=== PATIENT | male | born 1960 | race Two or more races ===

== ENCOUNTER 2019-12-16 09:30 | Outpatient (CLI) | payer OTHER | END 2019-12-16 09:43 | disposition home or self-care (01) | LOC: LAB 09:30 | DX: N20.0 Calculus of kidney (principal) ==

== ENCOUNTER 2019-12-21 15:14 | Outpatient (CLI) | payer OTHER ==
[2019-12-26] MEDS ORDERED: HYDROCHLOROTHIA25 MG PO (12:08)
[2019-12-26] MEDS ORDERED: ASPIR 8181 MG PO (12:08)
[2019-12-26] MEDS ORDERED: SYNTHROID175 MCG PO (12:08)
[2019-12-26] MEDS ORDERED: ENALAPRIL MALEA10 MG PO (12:08)
== END 2019-12-21 18:00 | disposition home or self-care (01) ==
LOC: EKG 15:14
DX: I10 Essential (primary) hypertension (principal)

== ENCOUNTER 2020-01-17 09:52 | Inpatient (IN) | payer OTHER ==
[~2020-01-17] VITALS: Ht 167.6 cm; Wt 79.8 kg
[~2020-01-17 09:52] MED LIST: ASPIR 8181 MG PO; ENALAPRIL MALEA10 MG PO; HYDROCHLOROTHIA25 MG PO; SYNTHROID175 MCG PO
== END 2020-01-19 09:20 | disposition home or self-care (01) | DRG 661 ==
LOC: CIR.AMB 09:52 → SURH 19:10
PROVIDERS: ADMIT Urology; ATTEND Urology
PROC: 0TC08ZZ Extirpation of Matter from Right Kidney, Via Natural or Artificial Opening Endoscopic (ICD-10-PCS; 2020-01-17)
PROC: BT1DZZZ Fluoroscopy of Right Kidney, Ureter and Bladder (ICD-10-PCS; 2020-01-17)
PROC: 0TF38ZZ Fragmentation in Right Kidney Pelvis, Via Natural or Artificial Opening Endoscopic (ICD-10-PCS; principal; 2020-01-17 11:30)
DX: N20.0 Calculus of kidney (principal)